=== PATIENT | female | born 1965 | race Caucasian/White ===

== ENCOUNTER → 2021-06-20 | Outpatient (CLI) | payer OTHER ==
[~2021-06-20] MED LIST: GRALISE600 MG; LYRICA100 MG; MAXZIDE 75-501 EAC1; VENLAFAXINE HC150 M1; ZOFRAN ODT4 MG PO
== END ==
LOC: M.CT 08:00
PROVIDERS: ATTEND Internal Medicine Cardiovascular Disease
DX: Z13.6 Encounter for screening for cardiovascular disorders (principal)